=== PATIENT | female | born 1985 | race Caucasian/White ===

== ENCOUNTER 2017-06-17 07:05 | Day surgery (SDC) | payer MEDICAID ==
[2017-06-16 12:17] LABS: BASOPHILS 0.4 % (0-2); HEMATOCRIT 39.7 % (36.0-48.0); HEMOGLOBIN 12.7 g/dL (12-16); IMMATURE GRANULOCYTES 0.6 % (0-5); LYMPHOCYTES 22.6 % (15-50); MCV 84.3 fL (80.0-100.0); MONOCYTES 4.7 % (2-11); NEUTROPHILS 67.7 % (40-80); PLATELET COUNT 349 10x3/uL (130-400); RBC 4.71 10x6/uL (4.00-5.40); RDW 14.4 % (11.5-14.5); WBC 14.1 10x3/uL (4.8-10.8)
[2017-06-16 12:39] LABS: CALC OSMOLALITY 274 mosm/kg (275-300); CALCIUM 8.7 mg/dL (8.5-10.1); CHLORIDE - SERUM 102 mmol/L (98-107); CREATININE - SERUM 0.8 mg/dL (0.6-1.3); GLUCOSE 97 mg/dL (74-106); POTASSIUM - SERUM 4.3 mmol/L (3.5-5.1); SODIUM 138 mmol/L (136-145); UREA NITROGEN 9 mg/dL (7-18); eGFR NON AFRICAN AMERICAN 88 mL/min (90-120)
[~2017-06-17] VITALS: Ht 162.6 cm; Wt 116.1 kg
--- NOTE | ~2017-06-17 | OP ---
PATIENT NAME: BELLA PARK MEDICAL RECORD: [id number] :83 LOCATION:D[facility] ADMISSION DATE: SURGEON: ALEX RUTLEDGE MD DATE OF OPERATION: 06/17/2017 PREOPERATIVE DIAGNOSES: 1. Dysfunctional uterine bleeding. 2. Dysmenorrhea. POSTOPERATIVE DIAGNOSES: 1. Dysfunctional uterine bleeding. 2. Dysmenorrhea. 3. Suspect adenomyosis. PROCEDURE: Laparoscopic subtotal hysterectomy, bilateral salpingectomy. SURGEON: Alex Rutledge MD ANESTHESIOLOGIST: Mic Adams MD ANESTHETIC: General. FINDINGS: Uterus was enlarged and boggy. Tubes and ovaries were unremarkable. SPECIMENS REMOVED: Uterus with tubes and without cervix. SPECIMEN DISPOSITION: Pathology. ESTIMATED BLOOD LOSS: Less than or equal to 75 cc. FLUIDS: One liter of lactated Ringer's. URINE OUTPUT: Clear urine, 100 cc. COMPLICATION: None. DRAIN: Long to gravity, discontinued in [facility]. INDICATION: The patient is a 31-year-old female with undesired fertility and heavy painful periods that have not responded to conservative therapy. The patient was consented for laparoscopic subtotal hysterectomy. All risks and benefits have been discussed including risk of morcellation. DESCRIPTION OF PROCEDURE: After informed consent was assured, the patient was taken to the operating room, where anesthetic was obtained without difficulty. She was prepped and draped in the usual sterile fashion. Attention was directed to the umbilicus, where an incision was made to accommodate a 5-mm trocar. The accessory trocars were placed in right and left lower quadrants. The pneumoperitoneum was developed, and with the patient in steep Trendelenburg position, the bowel was swept free of the pelvis. The left tube was elevated, and using coagulation cutting device, the tube was freed from its attachment to the adnexa. Dissection was carried down over the round ligament and the uteroovarian ligament. The broad ligament was opened and the anterior leaf was dissected to the midline, developing the bladder flap fci. Posterior leaf was dissected free of the vasculature on the left side. The vascular bundle was OPERATIVE REPORT [id number] BELLA PARK not compressed, coagulated, and . Attention was directed to the right side, where right tube was elevated in similar fashion. Again, using coagulation cutter, the tube was freed from its attachments. The dissection was carried down over the uteroovarian ligaments and the round ligaments. Anterior leaf of the broad ligament was opened and the bladder flap now fully developed. Posterior leaf was dissected free and vessels of the right side were compressed, coagulated, and . Using the Harmonic scalpel, the uterus was removed from its attachments to the cervix. The endocervical canal was now cauterized. The surface of the cervix was inspected and the operative field appeared to be hemostatic. Uterus was now removed in several segments with morcellator. After this had been performed, the pelvis was irrigated, irrigant removed and all stray portions of uterine tissue removed. Sponge, lap, and needle counts were correct times 2. The pneumoperitoneum was released and the accessory port was removed. All skin sites were reapproximated with subcuticular stitch. The primary port was removed and that site was closed with a subcuticular stitch. Dermabond was applied. Sponge, lap, and needle count has been correct times 2. TRANSINT:[id number] Voice Confirmation ID: [id number] DOCUMENT ID: [id number] 06/29/2017 Edited to add procedure line, dmm. ALEX RUTLEDGE MD at 1726 CC: [id number] DICTATION DATE: 06/26/17 1147 BARREL LINER: 06/26/17 1222 [facility] 06/17/17 [facility] [address] [place] [address]
[~2017-06-17 07:05] MED LIST: DEXILANT60 MG PO; FERROUS SULFAT325 MG PO; OMEPRAZOLE20 M1 PO
[2017-06-17 07:34] VITALS: Ht 162.6 cm; Wt 116.1 kg
[2017-06-17 08:04] LABS: HCG URINE NEGATIVE (NEGATIVE)
== END 2017-06-17 18:31 | disposition home or self-care (01) ==
LOC: D.OPS 07:05 → D.PAN 08:15 → D.OPS 09:30 → D.LD 14:30 → D.OPS 18:31
PROVIDERS: Obstetrics & Gynecology
DX: N93.8 Other specified abnormal uterine and vaginal bleeding (principal); N94.6 Dysmenorrhea, unspecified; F17.200 Nicotine dependence, unspecified, uncomplicated; K21.9 Gastro-esophageal reflux disease without esophagitis; Z01.812 Encounter for preprocedural laboratory examination

== ENCOUNTER 2017-09-17 06:18 | Day surgery (SDC) | payer MEDICAID ==
[2017-09-16 14:43] LABS: HEMATOCRIT 39.7 % (36.0-48.0); HEMOGLOBIN 13.2 g/dL (12-16); MCH 27.3 pg (26.0-34.0); MCHC 33.2 g/dL (31.0-37.0); MCV 82.2 fL (80.0-100.0); MEAN PLATELET VOLUME 10.1 fL (7.4-10.4); RBC 4.83 10x6/uL (4.00-5.40); RDW 14.9 % (11.5-14.5); WBC 12.9 10x3/uL (4.8-10.8)
[~2017-09-17] VITALS: Ht 162.6 cm; Wt 116.1 kg
--- NOTE | ~2017-09-17 | OP ---
PATIENT NAME: BELLA PARK MEDICAL RECORD: [id number] :84 LOCATION:[facility] ADMISSION DATE: SURGEON: SULEMA AYON MD DATE OF OPERATION: 09/17/2017 SURGEON: Sulema Ayon MD ANESTHESIA: General anesthesia by Daphne Christianson CRNA. DIAGNOSIS: Female stress urinary incontinence. PROCEDURES: Cystoscopy, pubovaginal sling with [employer] Obtryx mesh graft. FINDINGS: On cystoscopy, single ureteral orifices bilaterally. No bladder tumors, no bladder injury. BLOOD LOSS: 50 mL. CLINICAL HISTORY: This is a 32-year-old female, A0, who has a problem with urinary female incontinence. She had this problem prior to her hysterectomy, but after she had a hysterectomy it became worse. The hysterectomy was performed on May of [address] Martin Luna. She leaks with coughing, sneezing, and exertion. She changes her pads 4-6 times per day. She also has nocturia times zero. When I examined her in the office, she had stress urinary incontinence with urethral hypermobility. There was a very minor degree of cystocele, no enterocele and very minor degree [place] grade I of rectocele. She comes today to have a pubovaginal sling performed. She will be having a mesh graft. The risks of mesh use were explained to her preoperatively and she is aware of these risks including infection, pain, dyspareunia, graft erosion, graft expulsion into the vagina. She is not allergic to any medications. She was given Ancef customer acquisition manager to the OR. DESCRIPTION OF PROCEDURE: The patient was given induction of general anesthesia. She was then placed in the dorsal lithotomy position and prepped and draped. A weighted speculum was placed to hold the posterior vaginal wall down. The labia majora were retracted laterally using stay sutures of #2 nylon. These stay sutures were anchored to the medial thighs. A Long catheter was placed into the bladder for drainage. The anterior vaginal wall was infiltrated with Pitressin solution for hydrodissection. Twenty units of vasopressin was dissolved in 100 mL of injectable saline for the Pitressin solution. A 1-cm incision was made in the anterior vaginal wall midline under the urethra. Dissection was then performed to raise the vaginal mucosal flaps. We extended the dissection laterally to reach the obturator membrane on each side. The pubocervical fascia in this area was also perforated locally using blunt dissection with the fingers. At this point, we landmarked for the placement of our helical trocars of the Obtryx graft. The landmark is at the insertion of the adductor longus muscle onto the descending pubic ramus. We made our landmarks right inferior to the body of the muscle. A small stab incision was made here on either side. The helical trocars were then placed one at a time, behind the descending pubic ramus and through the apex of the obturator membrane. The tip of the helical trocar then entered into the vaginal dissection space. The graft arm was then attached to the tip of the helical trocar and the trocar was then withdrawn to allow transobturator passage of the graft arm. This was repeated on the other side. The graft was then centered so OPERATIVE REPORT [id number] BELLA PARK that it lay under the mid urethra. There is a tab on the middle of the graft to allow centering. The Long catheter was then removed. Cystoscopy was performed using a 17-Kazakh cystoscope with 30-degree lens. No bladder injury was seen. The bladder was filled to capacity through the cystoscope with normal saline. We were then able to apply suprapubic pressure and see leakage per the urethra. Tension was gradually applied on the sling until further manual suprapubic pressure did not elicit any further urinary leakage per the urethra. At this point, we had sufficient tension for continence. The tab on the midportion of the sling was removed. The clear plastic sheath material on either end of the graft arms was removed entirely. The graft arms were cut off where they exited the skin in the groin region. The groin incisions were closed using Dermabond. The vaginal wound was irrigated out using normal saline. The vaginal mucosa was then closed using running 4-0 Monocryl. Vaginal packing with Kerlix infiltrated with estrogen cream was placed. This will be removed prior to her going home today. I will see the patient next week in followup to check on her voiding symptoms. TRANSINT:[id number] Voice Confirmation ID: [id number] DOCUMENT ID: [id number] SULEMA AYON MD at 1055 CC: [id number] DICTATION DATE: 09/17/17 1002 PROPERTY ASSESSMENT MONITOR: 09/17/17 1050 [facility] [address] [place], [id number]
[2017-09-17 07:00] VITALS: BP 110/68; Ht 162.6 cm; Wt 116.1 kg
== END 2017-09-17 12:20 | disposition home or self-care (01) ==
LOC: D.OPS 06:18 → D.PAN 08:00 → D.OPS 12:20
PROVIDERS: Anesthesiology
DX: N39.3 Stress incontinence (female) (male) (principal); Z72.0 Tobacco use

== ENCOUNTER → 2019-02-21 13:30 | Outpatient (CLI) | payer MEDICAID ==
[2017-09-17 07:00] VITALS: BMI 44.0
--- NOTE | 2019-02-24 11:25 | ST ---
PATIENT:BELLA KOEHLER MEDICAL RECORD: [id number] SEX: F LOCATION:[facility] ORDER #: ADMISSION DATE: 02/21/19 AGE OF PATIENT: 33 REFERRING PHYSICIAN: INTERPRETING PHYSICIAN: MIAN CALLES MD DATE OF SERVICE: 02/21/2019 PROCEDURE: Treadmill stress test. Baseline ECG is normal. Exercised for 10 minutes 52 seconds on Petar protocol. Maximum heart rate 174 beats per minute, greater than 85% max predicted. No ECG changes for ischemia. No symptoms of ischemia. Normal blood pressure response to exercise. No arrhythmias noted. Fair exercise tolerance for age. TRANSINT:[id number] Voice Confirmation ID: [id number] DOCUMENT ID: [id number] MIAN CALLES MD at 1125 CC: [id number] DICTATION DATE: 02/22/19 0943 PANTRY CHEF: 02/22/19 1015 [facility] CLI 02/21/19 [place] [id number] [place] [address]
--- NOTE | 2019-02-24 11:25 | EC ---
PATIENT:BELLA KOEHLER DATE OF SERVICE: 02/21/19 SEX: F MEDICAL RECORD: [id number] DATE OF : 83 LOCATION:D.[facility] AGE OF PATIENT: 33 ADMISSION DATE: 02/21/19 REFERRING PHYSICIAN: INTERPRETING PHYSICIAN: MIAN CALLES MD ECHOCARDIOGRAM REPORT ECHO CHARGES 4 ECHO COMPLETE Date: 02/21/19 CLINICAL DIAGNOSIS: SYNCOPE/PALPITATIONS/ TACHYCARDIA/TAYLOR/MURMUR ECHOCARDIOGRAPHIC MEASUREMENTS (adult normal given) AC root (d.<3.7cm) 2.8 cm LV Septum d (<1.2 cm> 1.3 cm Valve Excursion 1.9 cm LV Septum (systole) 1.7 cm Left Atria (s.<4.0cm> 4.3 cm LVPW d(<1.2cm) 1.3 cm RV (d.<2.3cm) 2.4 cm LVPW (sytole) 1.6 cm LV diastole(<5.6CM) 5.5 cm MV E-F(>70mm/sec) cm LV systole 3.8 cm LVOT Diameter 1.8 cm MV exc.(>10mm) cm Est.ejection fraction (50-75%) % DOPPLER: LVIT cm/sec A 57.0 cm/sec E 80.0 cm/sec LA cm/sec RVSP 18.4 mmHg LVOT 131 cm/sec AOP1/2T m/s Asc. Ao 153 cm/sec RVOT 63.0 cm/sec RA cm/sec PA 109 cm/sec AV Gradient Peak 9.4 mmHg AV Mean 4.3 mmHg AV Area 2.2 cm MV Gradient Peak 3.8 mmHg MV Mean 1.5 mmHg MV Area cm COMMENTS: OP - HC Solderer: 1 MAHESH EDUARDA Cold Rolling Coordinator: 3 Dr. Sandoval TAPE# PACS Pericardial Effusion N DATE OF SERVICE: Adequate 2D, color flow imaging, spectral Doppler, and M-Mode LVH is present. LV internal dimension is normal. Wall motion is normal. EF is greater than 55%. Aortic valve is tricuspid. No evidence of stenosis by Doppler interrogation. Left atrium is minimally dilated at 4.3 cm. Mitral valve shows no prolapse. Trace MR. Right-sided chambers are grossly normal. Trace TR. ECHOCARDIOGRAM REPORT [id number] BELLA KOEHLER TRANSINT:[id number] Voice Confirmation ID: [id number] DOCUMENT ID: [id number] MIAN CALLES MD at 1125 CC: [id number] DICTATION DATE: 02/22/19 1013 [facility] CODERS: 02/22/19 1201 [facility] CLI 02/21/19 [place] [id number] [place] [id number]
== END | disposition home or self-care (01) ==
LOC: D.HCCECHO 13:30
PROVIDERS: ATTEND Internal Medicine Interventional Cardiology
DX: R01.1 Cardiac murmur, unspecified (principal); R55 Syncope and collapse

== ENCOUNTER 2020-05-16 19:06 | Emergency (ER) | payer OTHER ==
[~2020-05-16] VITALS: Ht 162.6 cm; Wt 113.6 kg
[~2020-05-16 19:06] MED LIST changes: +FLAGYL500 MG PO; +LEVAQUIN750 MG PO; +METHOCARBAMOL500 MG PO; +MIRALAX17 GM PO; +NEXIUM40 MG PO
[2020-05-16 19:31] VITALS: Ht 162.6 cm; Wt 113.6 kg
[2020-05-16 19:56] LABS: BASOPHILS 0.3 % (0-2); EOSINOPHILS 5.4 % (0-7); HEMATOCRIT 42.2 % (36.0-48.0); HEMOGLOBIN 13.6 g/dL (12-16); IMMATURE GRANULOCYTES 0.5 % (0-5); LYMPHOCYTE ABS# 3.68 10x3/uL (1.18-3.74); LYMPHOCYTES 22.2 % (15-50); MCH 27.3 pg (26.0-34.0); MCHC 32.2 g/dL (31.0-37.0); MCV 84.6 fL (80.0-100.0); MEAN PLATELET VOLUME 9.8 fL (7.4-10.4); MONOCYTES 4.6 % (2-11); NEUTROPHIL ABS# 11.09 10x3/uL (1.56-6.13); PLATELET COUNT 318 10x3/uL (130-400); RBC 4.99 10x6/uL (4.00-5.40); RDW 14.8 % (11.5-14.5); WBC 16.6 10x3/uL (4.8-10.8)
[2020-05-16 19:57] LABS: BILIRUBIN NEGATIVE (NEGATIVE); KETONE NEGATIVE (NEGATIVE); NITRITE NEGATIVE (NEGATIVE); UROBILINOGEN NORMAL mg/dL (< 2)
[2020-05-16 20:02] LABS: CALC OSMOLALITY 277 mosm/kg (275-300); CALCIUM 8.8 mg/dL (8.5-10.1); CARBON DIOXIDE 28.9 mmol/L (21.0-32.0); CHLORIDE - SERUM 103 mmol/L (98-107); CREATININE - SERUM 0.8 mg/dL (0.6-1.3); GLUCOSE 113 mg/dL (74-106); POTASSIUM - SERUM 3.7 mmol/L (3.5-5.1); SODIUM 139 mmol/L (136-145); UREA NITROGEN 11 mg/dL (7-18); eGFR NON AFRICAN AMERICAN 86 mL/min (90-120)
[2020-05-16 20:12] LABS: ALBUMIN 3.8 g/dL (3.4-5.0); ALKALINE PHOSPHATASE 70 U/L (30-120); ALT (SGPT) 28 U/L (10-68); AMYLASE - SERUM 40 U/L (25-115); BILIRUBIN - TOTAL 0.18 mg/dL (0.2-1.3); LIPASE 134 U/L (73-393); PROTEIN - SERUM 7.9 g/dL (6.4-8.2); TROPONIN-I < 0.017 ng/mL (0.000-0.060)
[2020-05-16 22:42] VITALS: BP 119/68
== END 2020-05-16 22:42 | disposition home or self-care (01) ==
LOC: D.ER 19:06
PROVIDERS: Family Medicine
DX: R10.12 Left upper quadrant pain (principal); E78.5 Hyperlipidemia, unspecified; J45.909 Unspecified asthma, uncomplicated; K21.9 Gastro-esophageal reflux disease without esophagitis; G62.9 Polyneuropathy, unspecified

== ENCOUNTER → 2020-05-21 08:28 | Outpatient (CLI) | payer OTHER ==
[2020-05-16 19:31] VITALS: BMI 43.0
== END | disposition home or self-care (01) ==
LOC: D.NM 08:28
PROVIDERS: ATTEND Clinical Nurse Specialist Adult Health
DX: R10.9 Unspecified abdominal pain (principal)

== ENCOUNTER → 2020-06-15 11:01 | Outpatient (CLI) | payer OTHER ==
[2020-05-16 19:31] VITALS: BMI 43.0
== END | disposition home or self-care (01) ==
LOC: D.CT 11:01
PROVIDERS: ATTEND Nurse Practitioner
DX: R10.30 Lower abdominal pain, unspecified (principal)

== ENCOUNTER 2020-07-09 06:55 | Day surgery (SDC) | payer OTHER ==
[2020-07-06 09:37] LABS: BASOPHILS 0.4 % (0-2); EOSINOPHILS 5.7 % (0-7); HEMATOCRIT 38.5 % (36.0-48.0); HEMOGLOBIN 12.5 g/dL (12-16); IMMATURE GRANULOCYTES 0.4 % (0-5); LYMPHOCYTES 22.7 % (15-50); MCH 27.6 pg (26.0-34.0); MCHC 32.5 g/dL (31.0-37.0); MEAN PLATELET VOLUME 9.8 fL (7.4-10.4); MONOCYTES 5.1 % (2-11); NEUTROPHIL ABS# 7.22 10x3/uL (1.56-6.13); NEUTROPHILS 65.7 % (40-80); PLATELET COUNT 308 10x3/uL (130-400); RBC 4.53 10x6/uL (4.00-5.40); RDW 14.6 % (11.5-14.5)
[2020-07-06 09:45] LABS: CALC OSMOLALITY 277 mosm/kg (275-300); CALCIUM 8.7 mg/dL (8.5-10.1); CARBON DIOXIDE 28.1 mmol/L (21.0-32.0); CHLORIDE - SERUM 104 mmol/L (98-107); CREATININE - SERUM 0.8 mg/dL (0.6-1.3); GLUCOSE 157 mg/dL (74-106); POTASSIUM - SERUM 4.1 mmol/L (3.5-5.1); SODIUM 138 mmol/L (136-145); UREA NITROGEN 9 mg/dL (7-18); eGFR NON AFRICAN AMERICAN 86 mL/min (90-120)
[~2020-07-09] VITALS: Ht 162.6 cm; Wt 112.3 kg
[~2020-07-09 06:55] MED LIST changes: +ALBUTEROL SULF8.5 GM INH
[2020-07-09 07:49] VITALS: BP 121/70; Ht 162.6 cm; Wt 112.3 kg
--- NOTE | 2020-07-09 11:52 | NUR ---
SCOPE PATCH BEHIND RT EAR ON ADMIT
--- NOTE | 2020-07-09 11:52 | NUR ---
OPA IN AIRWAY ON ADMIT
--- NOTE | 2020-07-09 14:15 | NUR ---
PATIENT HAS BEEN UP IN ROOM WALKING SOME TO TRY TO RELIEVE HER GAS. IV D/C'D WITH TIP INTACT. PATIENT DRESSING FOR DISCHARGE HOME. SPOUSE AT BEDSIDE.
--- NOTE | 2020-07-09 14:46 | NUR ---
DISCHARGE INSTRUCTIONS GIVEN TO PATIENT AND HER SPOUSE WITH UNDERSTANDING VOICED. IV D/C'D WITH TIP INTACT. PATIENT DRESSED AND TAKEN TO PRIVATE CAR VIA WHEELCHAIR.
--- NOTE | 2020-07-10 13:19 | HP ---
PATIENT: BELLA KOEHLER MEDICAL RECORD: [id number] ACCOUNT: [id number] LOCATION:[facility] : 83 ADMISSION DATE: 07/09/20 PCP: ALICIA IYER DO HISTORY AND PHYSICAL EXAMINATION PRINCIPAL DIAGNOSIS: Abdominal pain. HISTORY OF PRESENT ILLNESS: The patient has biliary dyskinesia. She is here to undergo a laparoscopic cholecystectomy, intraoperative cholangiogram with possible liver biopsy. PAST MEDICAL AND SURGICAL HISTORY: Diverticulitis, diabetes mellitus, asthma, urinary incontinence, sling operation for stress incontinence, C-sections times 2. SOCIAL HISTORY: Everyday smoker. ALLERGIES: No known drug allergies. HOME MEDICINES: Reviewed. PHYSICAL EXAMINATION: GENERAL: The patient does not appear acutely ill. She does not appear chronically ill. VITAL SIGNS: Reviewed. EARS: External ears appear normal. EYES: Extraocular movements are intact. NECK: Trachea is midline. CHEST: No intercostal retractions. PULMONARY: Nonlabored. No stridor. IMPRESSION: Biliary dyskinesia. PLAN: Laparoscopic cholecystectomy, intraoperative cholangiography, possible liver biopsy. TRANSINT:[id number] Voice Confirmation ID: [id number] DOCUMENT ID: [id number] SULEMA ANGELA MD at 1319 CC: ALICIA IYER and JOSEPH GRIFFIN ANP [id number] DICTATION DATE: 07/09/2059 SWIM INSTRUCTOR: 07/09/20 1036 [facility] 07/09/20 [place] [id number] [place] [id number]
--- NOTE | 2020-07-18 16:25 | OP ---
PATIENT NAME: BELLA KOEHLER MEDICAL RECORD: [id number] :83 [facility] ADMISSION DATE: SURGEON: SULEMA ANGELA MD DATE OF OPERATION: 07/09/2020 PREOPERATIVE DIAGNOSIS: Biliary dyskinesia. POSTOPERATIVE DIAGNOSIS: Biliary dyskinesia with hepatomegaly. PROCEDURE: 1. Laparoscopic cholecystectomy. 2. Intraoperative cholangiography without immediate surgeon interpretation. 3. A 14-gauge core needle liver biopsy. SURGEON: Sulema Angela MD MUSIC COMPOSITION TEACHER: None. BLOOD LOSS: Minimal. ANESTHESIA: General. COMPLICATIONS: None. The risks, possible complications, and alternatives of the procedure were explained to the patient. She elects to proceed. The discussion specifically included, but was not limited to, bleeding requiring emergency reoperation, infection, intestinal injury as well as a bile duct injury. OPERATIVE COURSE: The patient was conveyed to the operating room electively on 07/09/2020. General anesthesia was induced by the anesthesia staff. The abdomen was sterilely prepped and draped. A small incision was accomplished in the left upper quadrant. A Veress needle was inserted through the skin incision into the peritoneal cavity. CO2 insufflation was begun. Once a sufficient pneumoperitoneum had been achieved, a 5-mm trocar was inserted through this incision in the left upper quadrant. Under direct internal vision utilizing a television camera, a 12-mm trocar was inserted through the incision at the umbilicus. A 5-mm trocar was inserted through an incision in the epigastrium and another 5-mm trocar was inserted far laterally in the right upper quadrant. During insertion of the Veress needle and all trocars, there appeared to have been no injury to the bowels, any intraperitoneal or retroperitoneal structures. An abdominal survey was undertaken. The indication for liver biopsy was hepatomegaly. Under laparoscopic guidance, I percutaneously accessed the right upper quadrant utilizing a 14-gauge core biopsy device. Cores were obtained over the convexity of the liver. The biopsy sites were made hemostatic with electrocautery. I then grasped the gallbladder. I advanced a cholangiogram trocar. I punctured the fundus of the gallbladder. I aspirated bile. I then injected dye. Real-time fluoroscopic images were obtained and these static images were sent to the radiologist for interpretation. These were the coronary angiographic images. I then aspirated bile and removed the cholangiogram trocar. The gallbladder was grasped and retracted cephalad. The infundibulum was grasped and retracted laterally. Blunt dissection was begun in the triangle of OPERATIVE REPORT [id number] BELLA KOEHLER. One cystic artery and one cystic duct were identified. These were clipped multiply and divided between clips. The gallbladder was then excised from its bed in the liver. It was placed within a bag retrieval device and was withdrawn through the umbilical fascial defect. A 12 mm trocar was replaced and the abdomen reinsufflated. I irrigated and aspirated the right upper quadrant. There was no bleeding even at low pressure of 8. The 12-mm trocar was removed. The Joo-Jason suture closure device and 0 Vicryl sutures were used to close the fascia at the umbilicus. All the trocars were removed and the abdomen desufflated. The skin at the umbilicus was closed with interrupted 4-0 Vicryl Rapide sutures. The other trocar sites were closed with interrupted intracuticular 3-0 Vicryls. Benzoin and Steri-Strips were applied. The patient was then extubated and conveyed to the postanesthesia care unit where she was in stable condition. TRANSINT:[id number] Voice Confirmation ID: [id number] DOCUMENT ID: [id number] SULEMA ANGELA MD at 1625 CC: [id number] DICTATION DATE: 07/17/201701 PAD TUFTER: 07/17/20 3236 [facility] 07/09/[address] [id number]
== END 2020-07-09 14:25 | disposition home or self-care (01) ==
LOC: D.OPS 06:55
PROVIDERS: Anesthesiology; ATTEND Surgery
DX: K82.8 Other specified diseases of gallbladder (principal); R16.0 Hepatomegaly, not elsewhere classified; K57.30 Diverticulosis of large intestine without perforation or abscess without bleeding; E11.9 Type 2 diabetes mellitus without complications; J45.909 Unspecified asthma, uncomplicated